=== PATIENT | male | born 1950 | race Caucasian/White ===

== ENCOUNTER → 2016-12-30 | Outpatient (CLI) | payer MEDICARE ==
[~2016-12-30] MED LIST: ACIPHEX20 MG PO; ALPRAZOLAM PO; BACTRIM DS TABL1 TAB PO; BUSPAR PO; COLACE PO; GAS-X166 MG PO; MOBIC PO; NIFEDIPINE XR PO; PERCOCET PO; PERCOCET5/325 PO; PHENERGAN PO; PROTONIX PO; ROBAXIN PO; SKELAXIN PO; STOOL SOFTNER; TRAZODONE PO; ZESTORETIC 20/21 TAB PO
--- NOTE | ~2016-12-30 | CT2 ---
[facility] A Service [facility] RADIOLOGY TEXT RESULTS PATIENT: ANTONIO DUBON LOCATION: [facility] : 52 UNIT #: [id number] AGE: [address]: Tino Jones MD SEX: M ORDER DR: [id number] [place] [id number] O MR#: [id number] Acc #: [id number] NAME: ANTONIO DUBON : 1950 SEX: M STUDY DATE/TIME: 12/30/2016 9:43 UNIT: [facility] ROOM: STUDY DESCRIPTION: CT Abd and Pelv W Cont Attending Physician: Tino Jones M.D. Referring Physician: Tino Jones M.D. Ordering Physician: Tino Jones M.D. Primary Care Physician: Antonio Momin M.D. MEDICAL IMAGING REPORT This report is preliminary unless electronic signature is present. EXAM CT of the abdomen and pelvis with contrast. INDICATION Occasional right upper quadrant pain and stomach bulging for 10-15 years. History of polyps on colonoscopy. TECHNIQUE CT of the abdomen and pelvis was performed following the administration of oral and IV contrast. Coronal and sagittal reformatted images were obtained. This CT exam was performed with one or more of the following radiation dose reduction techniques: automatic exposure control, adjustment of mA and/or kV according to patient size, and iterative reconstruction. COMPARISON STUDIES Comparison with 10/05/2009. FINDINGS There is some minimal scarring/atelectasis in the inferior lingula and some minimal tree-in-bud nodularity in the right middle lobe. Stable cyst in the liver. Gallbladder and spleen unremarkable. Tiny cysts in the left kidney. Small cyst right kidney. Adrenal glands and pancreas are unremarkable. PELVIS: Colon is unremarkable. The appendix is normal. No free fluid. No evidence of any abdominal wall hernia. Bone windows demonstrate degenerative changes of the lumbar spine. IMPRESSION There are no CT findings to explain the patient's symptoms. [facility] A Service of [facility] RADIOLOGY TEXT RESULTS PATIENT: ANTONIO DUBON [id number] : [birth year] UNIT #: [id number] AGE: [address]: Tino Jones MD SEX: M ORDER DR: Dictated by... Javier Garcia M.D. THIS IS AN ELECTRONICALLY VERIFIED REPORT Javier Garcia M.D. at 12/31/2016 7:45 AM DALIA/rakan TD: 12/30/2016 11:03 JOB #: [id number] MEDICAL IMAGING REPORT Page 1 of 1
[2016-12-30 08:45] LABS: POC - CREATININE 1.49 mg/dL (0.64-1.27)
== END | disposition home or self-care (01) ==
LOC: SCT 08:11
PROVIDERS: Internal Medicine
DX: R10.11 Right upper quadrant pain (principal); R19.00 Intra-abdominal and pelvic swelling, mass and lump, unspecified site
CPT/HCPCS: 74177; 82565; Q9967